=== PATIENT | male | born 1965 | race African-American/Black ===

== ENCOUNTER 2018-10-05 10:23 | Emergency (ER) | payer SELFPAY ==
[~2018-10-05] VITALS: Ht 180.3 cm; Wt 95.0 kg
[~2018-10-05 10:23] MED LIST: BENA40TA66; HYDR-523
[2018-10-05] MEDS ORDERED: TETRACAINE 0.5% OPHTH DROPS 4ML OP ONE (12:45)
[2018-10-05] MEDS ORDERED: FLUORESCEIN SODIUM 1MG/STRIP OP ONE (12:45)
[2018-10-05 13:29] VITALS: BP 153/100
== END 2018-10-05 13:31 | disposition home or self-care (01) ==
LOC: ER 10:23
DX: S05.01XA Injury of conjunctiva and corneal abrasion without foreign body, right eye, initial encounter (principal); I10 Essential (primary) hypertension; W22.8XXA Striking against or struck by other objects, initial encounter; Y93.89 Activity, other specified; Y92.9 Unspecified place or not applicable
CPT/HCPCS: 99283

== ENCOUNTER 2018-10-13 16:52 | Emergency (ER) | payer SELFPAY ==
[~2018-10-13] VITALS: Ht 180.3 cm; Wt 86.0 kg
[2018-10-13] MEDS: SODIUM CHLORIDE 0.9% 1,000 ML IV ONE (17:34)
[2018-10-13] MEDS: AMLODIPINE 5MG TABLET PO ONE (17:36)
[2018-10-13 17:40] LABS: BASOPHILS % 0.4 % (0.0-2.0); EOSINOPHILS % 2.8 % (0.0-5.0); HEMATOCRIT. 40.5 % (42.0-52.0); HEMOGLOBIN. 13.7 g/dL (14.0-18.0); LYMPHOCYTES % 20.1 % (20.0-50.0); MEAN CORPUSCULAR HEMOGLOBIN 29.7 pg (28.0-32.0); MEAN CORPUSCULAR VOLUME 87.6 fL (80.0-94.0); MEAN PLATELET VOLUME 7.9 fl (7.4-10.4); MONOCYTES % 5.6 % (2.0-8.0); NEUTROPHILS % 71.1 % (40.0-76.0); PLATELET 257 x1000/uL (130-400); RED BLOOD CELL COUNT 4.62 mill/uL (4.7-6.1); RED CELL DISTRIBUTION WIDTH 13.3 % (11.6-14.6)
[2018-10-13 17:42] LABS: CHLORIDE 99 mEq/L (98-107)
[2018-10-13] MEDS: CLONIDINE 0.2MG TABLET PO ONE (19:45)
[2018-10-13 20:58] VITALS: BP 158/89
== END 2018-10-13 21:01 | disposition home or self-care (01) ==
LOC: ER 18:14
DX: I10 Essential (primary) hypertension (principal); R42 Dizziness and giddiness; Z98.890 Other specified postprocedural states
CPT/HCPCS: 36415; 71045; 80053; 85025; 93005; 96360; 99284; J7030

== ENCOUNTER 2019-07-01 05:03 | Emergency (ER) | payer SELFPAY ==
[~2019-07-01] VITALS: Ht 180.3 cm; Wt 87.0 kg
[2019-07-01 06:15] VITALS: BP 168/93
== END 2019-07-01 06:16 | disposition home or self-care (01) ==
LOC: ER 05:20
DX: H60.92 Unspecified otitis externa, left ear (principal); R00.0 Tachycardia, unspecified; I10 Essential (primary) hypertension; R45.0 Nervousness; Z98.890 Other specified postprocedural states; Z79.899 Other long term (current) drug therapy
CPT/HCPCS: 99283

== ENCOUNTER 2019-08-08 22:27 | Inpatient (IN) | payer SELFPAY ==
[~2019-08-08] VITALS: Ht 180.3 cm; Wt 88.5 kg
[2019-08-08] MEDS ORDERED: SODIUM CHLORIDE 0.9% 1,000 ML IV ONE (23:15)
[2019-08-08] MEDS ORDERED: LORAZEPAM 2MG/ML CPJ IV ONE (23:15)
[2019-08-08 23:50] LABS: BASOPHILS % 0.4 % (0.0-2.0); HEMATOCRIT. 48.4 % (42.0-52.0); HEMOGLOBIN. 16.5 g/dL (14.0-18.0); LYMPHOCYTES % 14.5 % (20.0-50.0); MEAN CORPUSCULAR HEMOGLOBIN 30.4 pg (28.0-32.0); MEAN CORPUSCULAR VOLUME 89.3 fL (80.0-94.0); MONOCYTES % 5.8 % (2.0-8.0); NEUTROPHILS % 79.3 % (40.0-76.0); PLATELET 244 x1000/uL (130-400); RED BLOOD CELL COUNT 5.42 mill/uL (4.7-6.1)
[2019-08-08 23:53] LABS: CHLORIDE 88 mEq/L (98-107)
[2019-08-09 00:28] LABS: CLARITY URINE CLEAR (CLEAR); COLOR URINE YELLOW (YELLOW); KETONES URINE 2+ (NEGATIVE); LEUKOCYTE ESTERASE URINE NEGATIVE (NEGATIVE); NITRITE URINE NEGATIVE (NEGATIVE); OCCULT BLOOD URINE NEGATIVE (NEGATIVE); PROTEIN URINE 1+ (NEGATIVE); SPECIFIC GRAVITY URINE 1.039 (1.005-1.030); UROBILINOGEN URINE 0.2 E.U./dL (0.2-1.0)
[2019-08-09 01:02] LABS: *AMPHETAMINES SCREEN URINE NEGATIVE (NEGATIVE); *BARBITURATES SCREEN URINE NEGATIVE (NEGATIVE); *BENZODIAZEPINES SCREEN URINE NEGATIVE (NEGATIVE); *COCAINE SCREEN URINE NEGATIVE (NEGATIVE); METHADONE URINE SCREEN NEGATIVE (NEGATIVE)
[2019-08-09 01:03] LABS: CANNABINOID URINE SCREEN NEGATIVE (NEGATIVE); OPIATES URINE SCREEN NEGATIVE (NEGATIVE); PHENCYCLIDINE URINE SCREEN NEGATIVE (NEGATIVE)
[2019-08-09] MEDS ORDERED: SODIUM CHLORIDE 0.9% 1,000 ML IV ONE (01:13)
[2019-08-09] MEDS ORDERED: INSULIN REGULAR (DRIP) 100 UNITS in SODIUM CHLORIDE 0.9% 99 ML IV SCH (01:15)
[2019-08-09 01:45] LABS: BG BASE EXCESS -7.6 mmol/L (-2.0-2.0); BG CARBOXYHEMOGLOBIN 0.5 % (0.5-1.5); BG DEOXYHEMOGLOBIN 2.2 % (0.0-5.0); BG FRACTION INSPIRED OXYGEN 28; BG HCO3 ACT 17.1 mmol/L (22.0-26.0); BG METHEMOGLOBIN 0.3 % (0.0-1.5); BG OXYGEN SATURATION 97.8 % (92.0-98.5); BG PCO2 33.1 mmHg (35.0-45.0); BG PH 7.331 (7.350-7.450); BG PO2 108.8 mmHg (75.0-100.0); BG SAMPLE SITE RIGHT RADIAL; BG TOTAL HEMOGLOBIN 16.4 g/dL (12.0-18.0); BG VENT MODE NASAL CANNULA
[2019-08-09 02:30] LABS: CHLORIDE 97 mEq/L (98-107)
[2019-08-09 04:37] LABS: CHLORIDE 99 mEq/L (98-107)
[2019-08-09 07:30] VITALS: BP 113/95
[2019-08-09 08:32] LABS: CHLORIDE 103 mEq/L (98-107)
[2019-08-09] MEDS ORDERED: EPINEPHRINE 0.1MG/ML (1:10,000) 10ML SYR ONE ×2 (08:49→09:05)
[2019-08-09] MEDS ORDERED: CALCIUM CHLORIDE 1GM/10ML SYR IV ONE (08:53)
[2019-08-09] MEDS ORDERED: IPRATROPIUM/ALBUTEROL 0.5-3(2.5)MG/3ML NEB HHN PRN (09:30)
[2019-08-09] MEDS ORDERED: ACETAMINOPHEN 650MG SUPP PR PRN (09:30)
[2019-08-09] MEDS ORDERED: ONDANSETRON HCL 4MG/2ML INJ IV PRN (09:30)
[2019-08-09] MEDS ORDERED: CLONIDINE 0.1MG TABLET PO PRN (09:30)
[2019-08-09] MEDS ORDERED: SODIUM CHLORIDE 0.9% 1,000 ML IV SCH (10:00)
[2019-08-09] MEDS ORDERED: ENOXAPARIN 40MG/0.4ML SYR SUBCUT SCH (10:00)
[2019-08-09 10:03] LABS: PHOSPHORUS 2.6 mg/dL (2.5-4.9)
== END 2019-08-09 09:00 | disposition expired | DRG 420 ==
LOC: ER 22:27 → MICUSO 08-09 03:03
PROVIDERS: ADMIT Internal Medicine; ATTEND Internal Medicine
PROC: 5A12012 Performance of Cardiac Output, Single, Manual (ICD-10-PCS; principal; 2019-08-09)
DX: E11.10 Type 2 diabetes mellitus with ketoacidosis without coma (principal); F41.9 Anxiety disorder, unspecified; I10 Essential (primary) hypertension; Z79.899 Other long term (current) drug therapy
CPT/HCPCS: 36415; 36600; 71045; 80048; 80305; 81003; 82010; 82375; 82805; 82962; 83735; 84100; 85025; 93005; 99291; J1815; J2060; J3490; J7030; J7050